=== PATIENT | female | born 1990 | race Caucasian/White ===

== ENCOUNTER → 2018-10-20 17:00 | Outpatient (REF) | payer OTHER, MEDICAID, SELFPAY ==
[2018-10-21 16:49] LABS: Add Manual Diff / Slide Review NO; Basophils Percent Auto 0.7 % (0-2); Eosinophils Percent Auto 4.2 % (2-4); HEMOLYSIS 19 (0-50); Hematocrit 38.2 % (36-46); Hemoglobin 12.9 g/dL (12.0-16.0); Iron 75 ug/dL (37-170); Lymphocytes Percent Auto 36.6 % (25-40); Mean Corpuscular HGB Conc 33.9 % (30-36); Mean Corpuscular Hemoglobin 31.7 PG (26-34); Mean Corpuscular Volume 93.5 fL (80-100); Neutrophils Absolute Auto 4400 /uL (3000-5900); Neutrophils Percent Auto 49.5 % (50-75); Platelet Count 352 X10^3/uL (150-400); Red Blood Cell Count 4.08 X10^6/uL (4.0-5.2); Red Cell Distribution Width 12.6 % (11.6-14.8); White Blood Cell Count 8.8 X10^3/uL (4.5-11.0)
[2018-10-21 16:53] LABS: Alanine Aminotransferase 46 IU/L (9-52); Albumin 4.3 g/dL (3.5-5.0); Albumin Globulin Ratio 1.6 (1.0-2.8); Alkaline Phosphatase 58 U/L (38-126); Aspartate Aminotransferase 146 IU/L (14-36); BUN Creatinine Ratio 21.7 (6-22); Bilirubin Total 0.3 mg/dL (0.2-1.3); Blood Urea Nitrogen 13 mg/dL (7-17); Calcium 9.7 mg/dL (8.4-10.2); Carbon Dioxide 28 mmol/L (22-32); Chloride 102 mmol/L (98-107); Cholesterol 142 mg/dL (140-199); Estimated Glomerular Filt Rate > 60.0 mL/min (>60); Globulin 2.7 g/dL (1.7-4.1); Glucose 90 mg/dL (70-100); HDL Cholesterol 62 mg/dL (40-60); HEMOLYSIS 20 (0-50); LDL Cholesterol Calculated 57 mg/dL (<100); Potassium 4.1 mmol/L (3.4-5.1); Sodium 140 mmol/L (137-145); Triglycerides 115 mg/dL (35-150)
[2018-10-21 17:02] LABS: Hemoglobin A1C% w Est Avg Glu 5.2 % (4.0-6.0)
[2018-10-21 17:03] LABS: Percent Iron Saturation 23 % (15-50); Total Iron Binding Capacity 328 ug/dL (265-497); Transferrin 264 mg/dL (206-381)
[2018-10-21 17:07] LABS: Vitamin D 25 Hydroxy (D3) 19.1 ng/mL (30.0-100.0)
[2018-10-21 17:12] LABS: HCG Quantitative /Beta subunit 1274.5 mIU/mL
[2018-10-21 17:13] LABS: Free T3, Triiodothyronine Free 4.47 pg/mL (2.77-5.27)
[2018-10-21 17:27] LABS: Thyroid Stimulating Hormone 0.75 uIU/mL (0.47-4.68)
[2018-10-21 17:30] LABS: Ferritin 44.1 ng/mL (6.27-137)
[2018-10-21 18:11] LABS: Vitamin B12 615 pg/mL (239-931)
[2018-10-21 20:00] LABS: Folate 14.2 ng/mL (2.76-20.0)
== END ==
LOC: LAB 17:00
PROVIDERS: Visit Provider Nurse Practitioner Acute Care
DX: O09.91 Supervision of high risk pregnancy, unspecified, first trimester (principal)
CPT/HCPCS: 80053; 80061; 82306; 82607; 82728; 82746; 83036; 83540; 83550; 84439; 84443; 84481; 84702; 85025